=== PATIENT | male | born 1995 | race Caucasian/White ===

== ENCOUNTER 2017-01-07 04:46 | Emergency (ER) | payer BC ==
--- NOTE | ~2017-01-07 | ER ---
PATIENT'S NAME: DUY PÉREZ [facility] AGE: 21 Y [address] ROOM: [place] [address] LOCATION: [facility] ADMIT DATE: 01/07/2017 ER/Outpatient Report DISCHARGE DATE: 01/07/2017 FAMILY PHYSICIAN: Kris Marshall MD ATTENDING PHYSICIAN: Ailin Pyle Time of Arrival: 0446 hours. Time of Evaluation: 0450 hours. IDENTIFICATION: A 21-year-old. CHIEF COMPLAINT: Right third finger laceration and suicidal ideation. HISTORY OF PRESENT ILLNESS: The patient is a 21-year-old male, who cut his right third finger on the volar aspect approximately with a piece of glass. He did that intentionally. He said that he is depressed with suicidal ideation. He did not take any medication and no other injuries to harm himself other than this laceration. He has had previous suicidal ideation in the past. ALLERGIES: TO PERCOCET AND VALIUM. CURRENT MEDICATIONS: None currently. He stopped taking his antidepressant 3 months ago. SOCIAL HISTORY: The patient lives in [place]. Tobacco use, 1 pack per day. Alcohol use, he has been drinking heavily tonight. He said he does not drink regularly. Drug use, he smokes marijuana rarely. No other illicit drug use. MEDICAL PROBLEMS: Anxiety, depression, PTSD. PRIOR SURGERIES: Left knee arthroscopy, right knee surgery x2. REVIEW OF SYSTEMS: The patient has had a nonproductive cough. No shortness of breath and no chest pain. All systems reviewed and negative other than what is noted in the HPI. PHYSICAL EXAMINATION: PATIENT'S NAME: DUY PÉREZ [facility] AGE: 21 Y [address] ROOM: [place] [address] LOCATION: [facility] ADMIT DATE: 01/07/2017 ER/Outpatient Report DISCHARGE DATE: 01/07/2017 FAMILY PHYSICIAN: Kris Marshall MD ATTENDING PHYSICIAN: Ailin Pyle VITAL SIGNS: Height 6 feet 2 inches, weight 142 kg, blood pressure 127/61, pulse 84, respirations 20, temp 98, and saturations 94%. GENERAL: A 21-year-old male, in no acute distress. HEENT: Head: Normocephalic, atraumatic. Ears: TMs translucent both ears. Nose: Mucosa pink, no lesions. Mouth: No lesions. Pharynx, benign. NECK: Supple. No lymphadenopathy. LUNGS: Clear to auscultation. HEART: Regular rate and rhythm. ABDOMEN: Soft, nondistended, nontender. SKIN: [place], warm, and dry. The patient has a 1.5 cm laceration on volar aspect proximally on his third finger. Full range of motion. No tendon involvement. He is neurovascularly intact. EXTREMITIES: No edema. Good distal pulses. SKIN: He does have some erythematous insect bites on his lower extremities, consistent with flea bites. The patient states that he does have fleas at their apartment. NEURO: The patient is alert and oriented x4. Cranial nerves 2 through 12 grossly intact. Motor strength 5/5 throughout. Sensation is intact to light touch. The patient does smell heavily of alcohol and has some slurred speech. LABORATORY DATA AND X-RAYS: Chemistry panel is unremarkable. Alcohol level 0.173. Acetaminophen less than 2. Salicylate less than 2.8. TSH 0.940. Hemoglobin 16.8, hematocrit 48.1, platelets 293, white count 13.6 with a normal differential. Urine drug screen pending at the time of shift change. Two-view chest x-ray, no acute process. Pending Radiology over-read. EMERGENCY DEPARTMENT COURSE: Mario Beltran was contacted. They requested to have a therapist come over and evaluate him here in the emergency room. So therapist evaluation and urine drug screen were pending at the time of shift change, and this case was handed off to Dr. Lama. AILIN PYLE MD CAR/modl /[id number] d: 01/08/17 0047 t: 01/08/17 0344, OUTPATIENT REPORT
--- NOTE | ~2017-01-07 | ER ---
PATIENT'S NAME: DUY JACKSON [facility] AGE: 21 Y [address] ROOM: [place] [address] LOCATION: [facility] ADMIT DATE: 01/07/2017 ER/Outpatient Report DISCHARGE DATE: 01/07/2017 FAMILY PHYSICIAN: Kris Marshall MD ATTENDING PHYSICIAN: Ailin Butler A HISTORY OF PRESENT ILLNESS: Mr. Jackson came to the emergency department for self-inflicted finger laceration. It was repaired by Dr. Butler and her PRACTICE PROFESSIONAL, Ailin. He did state that this was a purposeful act. There was concern for possible suicidal ideation. Thus, the Mario Beltran Team was consulted. The Mario Beltran Team is not recommending hospitalization at this time. His labs are grossly unremarkable. He is intoxicated with his serum alcohol is 0.173. TSH is within normal limits. Slight elevation of white count 13.6. The UDS grossly unremarkable. Urinalysis unremarkable. IMPRESSION: Finger laceration, alcohol intoxication, passive suicidal ideation. EMERGENCY DEPARTMENT COURSE: The patient was seen and evaluated as above. There is no acute indication for hospitalization from medical standpoint, Mario Beltran is cleared him from a psychiatric standpoint, the patient will be discharged home. Follow up with one of the resource as he was given for counseling. He expressed his willingness to do so. He should will call for any further thoughts of self- harm. MD AALIYAH CARRILLO/ryley /[id number] d: 01/07/17 1749 t: 01/17/17 1933, OUTPATIENT REPORT
[~2017-01-07 04:46] MED LIST: "\\\"PREP SPRAY\\\"-TIN4 OZ"; BENADRYL25 MG PO; MELATONIN1 MG PO; MOTRIN800 MG PO; NORCO 5-325 MG1 TAB PO; PERCOCET 5-3251 EACH PO; PROZAC40 MG PO; VALIUM5 MG PO; VISTARIL50 MG PO; WELLBUTRIN SR150 MG PO; ZOLOFT50 MG PO; ZYRTEC10 M3 PO
[2017-01-07 05:29] LABS: BASOPHIL # 0.1 K/uL (0.0-0.2); BASOPHIL % 0.9 %; EOSINOPHIL # 0.2 K/uL (0.0-0.5); EOSINOPHIL % 1.3 %; HEMATOCRIT 48.1 % (37.0-53.0); HEMOGLOBIN 16.8 g/dL (12.0-17.0); IMMATURE GRANULOCYTE # 0.1 K/uL (0.0-0.3); LYMPHOCYTE # 3.4 K/uL (0.8-4.0); LYMPHOCYTE % 24.8 %; MCHC 34.9 gm/dL (32.0-36.5); MCV 83.1 fl (83.0-98.0); MONOCYTE % 7.1 %; MPV 10.7 fl (9.4-12.4); NEUTROPHIL # (ANC) 8.8 K/uL (1.4-9.0); NEUTROPHIL % 64.9 %; NRBC % 0 /100WBC (0-0.00); PLATELET COUNT 293 K/uL (150-450); RBC 5.79 M/uL (4.00-6.00); RDW-CV 12.6 % (11.9-14.6); WBC 13.6 K/uL (4.0-11.0)
[2017-01-07 05:52] LABS: ALK PHOS 88 IU/L (33-138); ALT 66 IU/L (12-78); ANION GAP 17.9 (10.0-19.0); AST 33 IU/L (10-40); BLOOD UREA NITROGEN 12 mg/dL (6-24); CALCIUM 8.6 mg/dL (8.5-10.5); CHLORIDE 107 mMol/L (96-110); CO2 22 mMol/L (22-32); CREATININE 1.1 mg/dL (0.6-1.3); ESTIMATED GFR (MDRD EQUATION) > 60; POTASSIUM 3.9 mMol/L (3.7-5.1); SODIUM 143 mMol/L (135-145); TOTAL BILIRUBIN 0.3 mg/dL (0.0-1.5)
[2017-01-07 06:12] LABS: BILIRUBIN URINE NEGATIVE (NEGATIVE); BLOOD URINE NEGATIVE /UL (NEGATIVE); GLUCOSE URINE NEGATIVE (NEGATIVE); KETONE URINE NEGATIVE (NEGATIVE); LEUKOCYTES URINE NEGATIVE /UL (NEGATIVE); NITRITE URINE NEGATIVE (NEGATIVE); PROTEIN URINE NEGATIVE (NEGATIVE); SPEC GRAVITY URINE 1.015 (1.003-1.035); TURBIDITY URINE CLEAR (CLEAR); UROBILINOGEN URINE NORMAL (NORMAL)
[2017-01-07 06:14] LABS: COLOR URINE YELLOW (YELLOW)
[2017-01-07 06:29] LABS: BARBITURATE NEGATIVE (NEGATIVE); COCAINE NEGATIVE (NEGATIVE); OPIATES NEGATIVE (NEGATIVE)
[2017-01-07 06:34] LABS: AMPHETAMINE NEGATIVE (NEGATIVE)
== END 2017-01-07 07:52 ==
LOC: GACC 04:46
PROVIDERS: Family Medicine
PROC: 0HQFXZZ Repair Right Hand Skin, External Approach (ICD-10-PCS; principal; 2017-01-07)
DX: S61.212A Laceration without foreign body of right middle finger without damage to nail, initial encounter (principal); R45.851 Suicidal ideations; F10.129 Alcohol abuse with intoxication, unspecified; F43.10 Post-traumatic stress disorder, unspecified; F32.9 Major depressive disorder, single episode, unspecified; F41.9 Anxiety disorder, unspecified; F17.210 Nicotine dependence, cigarettes, uncomplicated; Z88.5 Allergy status to narcotic agent; Z98.890 Other specified postprocedural states; X78.0XXA Intentional self-harm by sharp glass, initial encounter
CPT/HCPCS: G0480